=== PATIENT | female | born 1960 | race Caucasian/White ===

== ENCOUNTER → 2019-05-11 14:47 | Outpatient (CLI) | payer OTHER, SELFPAY ==
--- NOTE | ~2019-05-11 | MM_ITS ---
EXAMINATION: MM screening tan BI w jean pierre HISTORY: Screening mammogram TECHNIQUE: Craniocaudal and mediolateral oblique 3-D tomosynthesis images were obtained and synthetic 2-D images were generated. CAD analysis was submitted and interpreted. COMPARISON: Comparison to multiple prior studies sequentially, with oldest reviewed study dated 01/24. BREAST PARENCHYMAL COMPOSITION: There are scattered areas of fibroglandular density. FINDINGS: There is no evidence of suspicious mass, calcification, or architectural distortion to sugg est malignancy in either breast. There has been no suspicious interval change. IMPRESSION: 1. No mammographic evidence of malignancy. 2. Recommend routine screening mammography in one year. BI-RADS Category 1: Negative Reviewed, dictated and finalized at location A.
== END ==
PROVIDERS: PCP Internal Medicine; Visit Provider Internal Medicine
DX: Z12.31 Encounter for screening mammogram for malignant neoplasm of breast (principal)
CPT/HCPCS: 77063; 77067

== ENCOUNTER → 2020-06-22 15:34 | Outpatient (CLI) | payer OTHER, SELFPAY ==
--- NOTE | ~2020-06-22 | MM_ITS ---
EXAMINATION: MM screening tan BI w jean pierre HISTORY: Screening mammogram TECHNIQUE: Craniocaudal and mediolateral oblique 3-D tomosynthesis images were obtained and synthetic 2-D images were generated. CAD analysis was submitted and interpreted. COMPARISON: 05/11/2019, 04/06/2018, 03/27/2017 bilateral digital screening mammogram examinations BREAST PARENCHYMAL COMPOSITION: The breasts are almost entirely fatty. FINDINGS: There is no evidence of suspicious mass, calcification, or architectural distortion to sugg est malignancy in either breast. There has been no suspicious interval change. IMPRESSION: 1. No mammographic evidence of malignancy. 2. Recommend routine screening mammography in one year. BI-RADS Category 1: Negative Reviewed, dictated and finalized at location A.
== END ==
PROVIDERS: PCP Internal Medicine; Visit Provider Student in an Organized Health Care Education/Training Program
DX: Z12.31 Encounter for screening mammogram for malignant neoplasm of breast (principal)
CPT/HCPCS: 77063; 77067

== ENCOUNTER → 2021-05-17 17:58 | Outpatient (CLI) | payer OTHER, SELFPAY ==
--- NOTE | ~2021-05-17 | MR_ITS ---
EXAMINATION: MR knee RT wo con DATE: 05/17/2021 18:30 INDICATION: Right knee pain TECHNIQUE: Magnetic resonance imaging (MRI) of the right knee was performed without intravenous contr ast. Sequences included coronal PD-weighted FSE, coronal PD-weighted FS FSE, sagittal T2-weighted FS E, sagittal PD-weighted FS FSE and axial PD weighted fat saturated FSE. COMPARISON: None. FINDINGS: Medial compartment: Medial meniscus is normal. Mild partial-thickness chondral ulceration without degenerative subchondra l changes along the medial margin of the anterior weightbearing medial femoral condyle. Lateral compartment: Complex tear of the lateral meniscus extending from the anterior to the posterior horn. The body and lateral aspect of the posterior horn. 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 There is a longitudinal horizontal tear plane in the remaining tissue of the meniscal body which extends into the anterior horn. Sense of full/near fu ll-thickness chondral ulceration along the central to posterior aspect of the lateral tibial plateau and at the central to posterior weightbearing lateral femoral condyle, the latter with multiple tiny subarticular cystlike changes. Patellofemoral compartment: Partial-thickness cartilage loss at the lateral patellar facet with deep fissuring and underlying mil d edema-like signal change at the lateral side of the lateral facet. There is an additional deep marleni dral fissuring without degenerative subchondral changes along the medial margin of the medial patella r facet. Partial-thickness chondral ulceration and deep fissuring along the inferior aspect of the me dial and lateral trochlea and intervening trochlear groove with small central subchondral osteophytes at the inferior medial trochlea. Less severe partial thickness chondral fissuring at the central asp ect of the trochlear groove. Ligaments and tendons: Anterior and posterior cruciate ligaments are normal. The medial collateral ligament and fibular andrew ateral ligament complex are normal. The extensor mechanism is normal. The visualized medial and later al hamstring tendons as well as the iliotibial band are normal. Fluid: Small knee joint effusion with fluid and mild synovitis at the suprapatellar pouch and at the poplite al recess. No loose osteochondral bodies identified. Osseous/other: Bone alignment is normal. No fracture or pathologic marrow replacing process. There is additional ost eoarthritis at the proximal tibiofibular articulation with small ganglion cysts along the ligament ar ising from the proximal tip of the fibula consistent with some intraosseous extension into the floor service worker spring olateral tibia at the footplate of the anterior tibiofibular ligament. IMPRESSION: 1. Complex lateral meniscal tear with large displaced meniscal flap. 2. Tricompartmental osteoarthritis at the right knee, severe in the lateral compartment, mild with mo derate and high-grade chondromalacia in the patellofemoral compartment and minimal with small region of moderate grade chondromalacia at the medial compartment. Reviewed, dictated and finalized at location A. IMPRESSION: 1. Complex lateral meniscal tear with large displaced meniscal flap. 2. Tricompartmental osteoarthritis at the right knee, severe in the lateral com partment, mild with moderate and high-grade chondromalacia in the patellofemora l compartment and minimal with small region of moderate grade chondromalacia at the medial compartment.
== END ==
PROVIDERS: PCP Internal Medicine; Visit Provider Nurse Practitioner Family
DX: M25.561 Pain in right knee (principal); S83.271A Complex tear of lateral meniscus, current injury, right knee, initial encounter; M17.11 Unilateral primary osteoarthritis, right knee; M94.261 Chondromalacia, right knee
CPT/HCPCS: 73721

== ENCOUNTER → 2021-07-02 12:13 | Outpatient (CLI) | payer OTHER, SELFPAY ==
--- NOTE | ~2021-07-02 | MM_ITS ---
EXAMINATION: MM screening tan BI w jean pierre HISTORY: Screening TECHNIQUE: Craniocaudal and mediolateral oblique 3-D tomosynthesis images were obtained and synthetic 2-D images were generated. CAD analysis was submitted and interpreted. COMPARISON: Comparison to multiple prior studies sequentially, with oldest reviewed study dated 03/13. BREAST PARENCHYMAL COMPOSITION: There are scattered areas of fibroglandular density. FINDINGS: There is no evidence of suspicious mass, calcification, or architectural distortion to sugg est malignancy in either breast. There has been no suspicious interval change. IMPRESSION: 1. No mammographic evidence of malignancy. 2. Recommend routine screening mammography in one year. BI-RADS Category 1: Negative Reviewed, dictated and finalized at location A.
== END ==
PROVIDERS: PCP Internal Medicine; Visit Provider Student in an Organized Health Care Education/Training Program
DX: Z12.31 Encounter for screening mammogram for malignant neoplasm of breast (principal)
CPT/HCPCS: 77063; 77067

== ENCOUNTER → 2022-08-29 13:20 | Outpatient (CLI) | payer OTHER, SELFPAY ==
--- NOTE | ~2022-08-29 | MM_ITS ---
EXAMINATION: MM screening tna BI w jean pierre HISTORY: Screening mammogram, family history of breast cancer in her mother. TECHNIQUE: Craniocaudal and mediolateral oblique 3-D tomosynthesis images were obtained and synthetic 2-D images were generated. CAD analysis was submitted and interpreted. COMPARISON: 07/02/2021, 06/22/2020, 05/11/2019 BREAST PARENCHYMAL COMPOSITION: The breasts are almost entirely fatty. FINDINGS: No suspicious mass, calcification, or architectural distortion are identified in either frank ast to suggest malignancy. There has been no suspicious interval change. IMPRESSION: 1. No mammographic evidence of malignancy. 2. Recommend routine screening mammography in one year. BI-RADS Category 1: Negative Reviewed, dictated and finalized at location A.
== END ==
PROVIDERS: PCP Registered Nurse; Visit Provider Internal Medicine
DX: Z12.31 Encounter for screening mammogram for malignant neoplasm of breast (principal)
CPT/HCPCS: 77063; 77067

== ENCOUNTER 2023-10-09 13:17 | Outpatient (CLI) | payer OTHER, SELFPAY ==
--- NOTE | ~2023-10-09 | MM_ITS ---
EXAMINATION: MM screening tan BI w jean pierre HISTORY: Screening TECHNIQUE: Craniocaudal and mediolateral oblique 3-D tomosynthesis images were obtained and synthetic 2-D images were generated. CAD analysis was submitted and interpreted. COMPARISON: Comparison to multiple prior studies sequentially, with oldest reviewed study dated 02/2017. BREAST PARENCHYMAL COMPOSITION: Not Dense: The breasts are almost entirely fatty. FINDINGS: There is no evidence of suspicious mass, calcification, or architectural distortion to sugg est malignancy in either breast. There has been no suspicious interval change. IMPRESSION: 1. No mammographic evidence of malignancy. 2. Recommend routine screening mammography in one year. BI-RADS Category 1: Negative Reviewed, dictated and finalized at location B.
== END 2023-10-09 13:18 ==
LOC: MICIMG 13:18
PROVIDERS: PCP Internal Medicine; Visit Provider Obstetrics & Gynecology
DX: Z12.31 Encounter for screening mammogram for malignant neoplasm of breast (principal)
CPT/HCPCS: 77063; 77067

== ENCOUNTER 2024-08-31 13:52 | Outpatient (CLI) | payer OTHER, SELFPAY ==
--- OUTSIDE RECORDS SUMMARY | 2024-08-31 13:58 | XMS_ITS | Clinical Summary ---
Author Organization [facility] A Address [address] [place] [address] Care Team Providers Care Clinical Supervisor Name Role Phone Mikki Nicolas Julius HUC Unavailable [phone] Ita Sanchez Unavailable [phone] Patrick Valdez MD Primary Care Provider [phone] Allergies Active Allergy Reactions Criticality Noted Date Comments Diclofenac Potassium Stomach upset Low Reaction: stomach upset, Venlafaxine Stomach upset Low Medications melatonin 10 mg capsule Take by mouth nightly Active cholecalcifer ol (VITAMIN D-3) 2,000 unit tablet Take by mouth daily before breakfast Active fluticasone propionate (Flonase) 50 mcg/actuation nasal spray Administer 2 sprays into each nostril daily as needed for rhinitis 1 Inhaler 3 020 Active CYANOCOBALAMI N, VITAMIN B-12, ORAL Take by mouth every other day Active ferrous sulfate 325 mg (65 mg of elemental iron) tabletIndicat ions:Iron Deficiency Anemia Take 1 tablet (325 mg total) by mouth every other day Active calcium carbonate (TUMS) 500 mg (200 mg elemental) chewable tablet Take 1 tablet/chew tab (500 mg total) by mouth 2 (two) times a day Active polyethylene glycol (MIRALAX) 17 gram packetIndicat ions:constipa tion Take 1 packet (17 g total) by mouth daily Active amoxicillin 500 mg capsule Take 4 tablet/capsule (2,000 mg total) by mouth daily as needed Take 4 capsules 1 hour prior to dental procedures as prophylaxis 024 Active gabapentin (NEURONTIN) 300 mg capsule TAKE 1 CAPSULE(300 MG) BY MOUTH EVERY NIGHT 90 capsule [address] (CYMBALTA) 60 mg capsule TAKE 1 CAPSULE TWICE DAILY 180 capsule 1 025 Active eletriptan (RELPAX) 40 mg tablet TAKE 1 TABLET(40 MG) BY MOUTH 1 TIME NEEDED FOR MIGRAINE. MAY REPEAT 1 TIME AFTER 2 HOURS NEEDED, 12 tablet 5 025 Active acyclovir (ZOVIRAX) 400 mg tabletIndicat ions:HSV (herpes simplex virus) infection TAKE 2 TABLETS(800 MG) BY MOUTH TWICE DAILY FOR 5 DAYS 20 tablet [address] (NexIUM) 40 mg capsule TAKE 1 CAPSULE DAILY BEFOREBREAKFAST 90 capsule 3 025 Active lisinopriL (PRINIVIL,ZES TRIL) 40 mg tablet Take 1 tablet (40 mg total) by mouth daily 90 tablet 3 025 Active galcanezumab- gnlm (Emgality Pen) 120 mg/mL pen injector Inject 120 mg under the skin every 30 (thirty) days 120 mL 6 025 Active diphenhydrAMI NE 25 mg capsule Take 1 tablet/capsule (25 mg total) by mouth every 6 (six) hours as needed for other (Headache) 20 capsule 025 Active metoclopramid e (REGLAN) 10 mg tablet Take 1 tablet (10 mg total) by mouth every 6 (six) hours as needed (nausea) 15 tablet 025 Active butalbital-ac etaminophen-c affeine (ESGIC) 50-325-40 mg per tablet Take 1 tablet by mouth every 6 (six) hours as needed for headaches (1 tablet for mild to moderate pain or 2 tablets for severe pain.) Do not exceed 6 tablets/day. 20 tablet 025 Active ziprasidone (GEODON) 20 mg capsule Take 1 capsule (20 mg total) by mouth daily 5 capsule 025 Active OLANZapine (ZyPREXA) 5 mg tablet Take 1 tablet by mouth nightly for 5 nights 5 tablet 025 2024 Discontinued Hospital, Clinic, or Other Facility Administered Medication Ordered Dose Route Frequency Start Date End Date Status onabotulinumtoxin A (BOTOX) 200 unit injection 200 UnitsIndications:Intractabl e chronic migraine without aura and without status migrainosus 200 Units IM Once 10/19/2024 10/20/2024 Active Active Problems Problem Noted Date Diagnosed Date Essential tremor 02/03/2024 Well woman exam 01/27/2023 Overview (03/15/2024): Lab: Pap:all normal Labs with pcp Tan:2023 Colonoscopy:2017, 2022 to repeat 2027. BMD:2021 forearm- -4, spine = -0.4 follows at [facility]. Assessment & Plan (03/15/2024 1:38 PM [employer]AMING AND HANGING): Pap done. RTO 12m. I will send the results to the portal. If she has not heard in a week, to call the office. Assessment & Plan (09/08/2023 4:07 PM CDT): Due in January. Assessment & Plan (01/27/2023 1:43 PM [employer]AMING AND HANGING): Pap done. RTO 12m. I will send the results to the portal. If she has not heard in a week, to call the office. Family history of cancer 01/27/2023 Overview (08/02/2023): Multiple see list. 02/26/23- my risk is negative. My risk score = 32.1 and TC model=21.6% 04/12/23- she did not see 08/02/23- she was seen at [facility], but did not enroll in their program. Increased surveillance was recommended. Assessment & Plan (03/15/2024 1:52 PM [employer]ING AND HANGING): Normal breast exam Will repeat in 6m. Assessment & Plan (09/08/2023 4:06 PM CDT): She is scheduled for September for tan Note reviewed from [facility] They recommend - yearly tan and q 6m breast exam. Breast are good. Assessment & Plan (03/10/2023 4:31 PM FRAMING AND HANGING): Will arrange for her to go to [facility] Will plan for usg to screen the ovaries q 1-2 years She had implant polisher She had colonscopy 02/15. Will plan to repeat 2027 Assessment & Plan (01/27/2023 1:51 PM FRAMING AND HANGING): She qualifies for genetic testing. Will arrange. RTO 6 weeks for the results. The limitations and implications of the test reviewed. She voices understanding and would like to proceed. Family history of colon cancer 12/16/2022 Encounter for screening colonoscopy 12/16/2022 Arthritis of right acromioclavicular joint 06/21 Impingement syndrome of right shoulder Preop examination 06/20/2022 Assessment & Plan (06/24/2022 11:22 AM CDT): She understands that no procedure is risk-free but accepts those as discussed during OV and wishes to proceed. She was instructed to contact us if any new symptoms or problems arise between now and surgery date. According to the RCRI, the patient's number of risk factors stratifies patient to class I, which carries a 3.9% risk of major cardiovascular complications Recent labs in March reviewed unremarkable She is medically optimized for surgery Impacted cerumen of left ear 04/18/2022 Assessment & Plan (07/25/2022 12:54 PM CDT): Patient's ears were lavaged gently with warm water and wax was easily removed from both reducing normal appearing tympanic membranes and improvement of hearing bilaterally. Patient had no questions or comments or complaints. Assessment & Plan (04/18/2022 2:34 PM FRAMING AND HANGING): Recommended Debrox for 4- 5 days and calling back for ear wash at that point. S/P total knee arthroplasty, right 11/11/2021 Hemorrhoids 09/07/2021 Overview (09/07/2021): Added automatically from request for surgery [id number] Osteoarthritis of right knee 03/24/2020 Assessment & Plan (03/24/2020 5:42 PM FRAMING AND HANGING): Repeat Orthopedic referral when ready. Low vitamin B12 level 07/23/2019 Assessment & Plan (05/09/2023 12:34 PM CDT): Continue B12 supplementation check levels yearly. Assessment & Plan (05/08/2023 6:10 PM CDT): B12 results in therapeutic range patient takes B12 every other day by mouth Assessment & Plan (04/18/2022 2:32 PM FRAMING AND HANGING): Continue supplementation check level in 1 year. Assessment & Plan (05/25/2021 12:06 AM CDT): Continue B12 supplementation. Assessment & Plan (03/24/2020 5:42 PM FRAMING AND HANGING): Continue supplementation and check level in 1 year. Assessment & Plan (07/23/2019 2:53 PM CDT): Continue supplementation check level before next visit. Iron deficiency 07/23/2019 Overview (03/24/2020): EGD 07/2019 with gastritis, healed on 10/2019 egd; colonoscopy unremarkable 2017. Iron levels, cbc normalized 02/2020. Assessment & Plan (04/18/2022 2:32 PM FRAMING AND HANGING): Continue supplementation check level in 1 year. Assessment & Plan (05/25/2021 12:06 AM CDT): Continue iron supplementation. Assessment & Plan (03/24/2020 5:44 PM FRAMING AND HANGING): Resolved with supplementation. Assessment & Plan (07/23/2019 2:54 PM CDT): Continue supplementation. EGD before next visit. Colonoscopy last done 2017. Gastroesophageal reflux disease with esophagitis 03/16/2019 Overview (03/16/2019): Added automatically from request for surgery [id number] Assessment & Plan (05/08/2023 6:11 PM CDT): Symptoms are suppress using Nexium 40 mg daily. Hypertension, essential 03/09/2019 Assessment & Plan (11/13/2023 2:21 PM CDT): Hypertension at goal 106/64 patient is maintained on lisinopril 40 mg daily. Symptoms referable to hypertension continue present therapy Assessment & Plan (05/09/2023 12:33 PM CDT): Blood pressure well controlled on lisinopril Assessment & Plan (05/08/2023 6:09 PM CDT): Blood pressure 1 patient is tolerating medications no change in therapy. Assessment & Plan (04/18/2022 2:33 PM FR[employer]ING [employer] HANGING): Blood pressure well controlled on lisinopril. Assessment & Plan (05/25/2021 12:06 AM CDT): Well controlled on the current regimen. Avoidance of salt, proper body weight, and routine exercise recommended. Assessment & Plan (03/24/2020 5:43 PM FRAMING AND HANGING): Well controlled on the current regimen. Avoidance of salt, proper body weight, and routine exercise recommended. Assessment & Plan (07/23/2019 2:52 PM CDT): Well controlled on the current regimen. Avoidance of salt, proper body weight, and routine exercise recommended. Assessment & Plan (03/09/2019 3:38 PM FRAMING AND HANGING): Start lisinopril 20 mg daily and check metabolic panel in 1 week. See her back in 2 months for repeat evaluation. Call back in 1 week for blood pressure update. Call back for any side effects that may develop. Anemia 03/09/2019 Overview (03/24/2020): Combination of b12/iron def. EGD with healed gastritis 10/2019. Hgb, B12, iron normal 02/2020. Assessment & Plan (05/25/2021 12:06 AM CDT): Hemoglobin normalized. Assessment & Plan (03/24/2020 5:44 PM FRAMING AND HANGING): Continue B12 and iron supplementation. Hemoglobin improved and now normal. Check levels again before next visit. Assessment & Plan (07/23/2019 2:52 PM CDT): Combination of iron and B12 deficiency. Continue supplementation. Check B12 and iron levels before next visit. EGD pending for iron deficiency. Assessment & Plan (03/09/2019 3:39 PM FRAMING AND HANGING): Laboratory workup before next visit. Spondylolisthesis of lumbar region 12/30/2018 Overview (12/30/2018): Added automatically from request for surgery [id number] Spondylolisthesis of lumbosacral region 12/10/19 19 Chronic migraine without aur a without status migrainosus, not intractable 10/14/2017 Assessment & Plan (03/09/2019 3:40 PM FRAMING AND HANGING): Continue current medication regimen and follow up with her neurologist as they direct. Assessment & Plan (03/08/2018 2:09 PM FRAMING AND HANGING): Continue her multiple medications and follow up with her neurologist as they direct. Healthcare maintenance 03/05/2017 Assessment & Plan (05/09/2023 12:33 PM CDT): Flu shot each November. Tetanus booster every 10 years. COVID booster recommended. Shingrix completed. Colonoscopy due January 2028. Mammogram yearly. Follow-up the sewer digger for breast exam and pelvic exam as they direct. Will see her back in 1 year for physical fasting lab sooner if needed. Assessment & Plan (04/18/2022 2:34 PM FRAMING AND HANGING): Flu shot each November. Tetanus booster today. COVID booster recommended. Shingrix recommended. Colonoscopy due April 2022. Mammogram yearly. Follow-up the sewer digger for breast exam and pelvic exam as they direct. Will see her back in 1 year for physical fasting lab sooner if needed. Assessment & Plan (05/25/2021 12:07 AM CDT): Flu shot each November. Tetanus booster every 10 years. COVID-19 vaccine recommended. Shingrix recommended. Colonoscopy due April 2022. Mammogram yearly. Follow-up the sewer digger for breast exam and pelvic exam as they direct. Will see her back in 1 year for physical fasting lab sooner if needed. Assessment & Plan (03/24/2020 5:44 PM FRAMING AND HANGING): Flu shot each November. Tetanus booster every 10 years. COVID -19 vaccine when available. Shingrix recommended. Colonoscopy April 2022. Mammogram April 2020. Follow-up with her sewer digger for breast exam and pelvic exam as they direct. Will see her back in 1 year for physical and fasting lab sooner if needed. Assessment & Plan (03/09/2019 3:39 PM FR[employer]ING AND HANGING): Flu shot each November. Tetanus booster every 10 years. Shingrix recommended. Colonoscopy due April 2022. Mammogram yearly. Will see her back in 2 months for a blood pressure check sooner if needed. Assessment & Plan (03/08/2018 2:09 PM FRAMING AND HANGING): Flu shot each November. Tetanus booster every 10 years. Shingrix recommended colonoscopy due April 2022. Yearly mammogram and follow up with her sewer digger for breast exam and pelvic exam as they direct. We will see her back in 1 year for physical and fasting lab sooner if needed. Assessment & Plan (03/05/2017 4:02 PM FRAMING AND HANGING): Flu shot each November. Tetanus booster every 10 years. Colonoscopy due later this month. Mammogram yearly. Follow-up with the sewer digger for breast exam and pelvic exam as they direct. We will see her back in 1 year sooner if needed. Chronic headache 03/04/2017 Overview (03/04/2017): Tension/migraine, followed by neurology at [facility]. Improved with botox. Failed nortriptyline. Assessment & Plan (11/13/2023 2:29 PM CDT): Headaches stable patient is under care of Neurology at [facility] Dr. Lundberg. Assessment & Plan (05/08/2023 6:07 PM CDT): Patient advised me therapy for headaches is working very effectively she is under care of neurologist at [facility] Dr. Summer Young. Follow-up visit about every 12 weeks to manage her ongoing headache concerns and problems Assessment & Plan (03/24/2020 5:43 PM [employer]ING [employer] HANGING): Follow-up with her neurologist as they direct. Assessment & Plan (03/05/2017 4:00 PM FRAMING AND HANGING): Follow-up with her neurologist as they direct. Chronic low back pain 03/04/2017 Assessment & Plan (03/09/2019 3:40 PM FRAMING AND HANGING): Follow-up with her neurosurgeon as they direct. Herpes labialis 03/04/2017 Osteoporosis 12/23/2016 Assessment & Plan (04/27/2024 6:54 PM FRAMING AND HANGING): Continue calcium, vitamin-D, weight-bearing exercise and follow up with her bone density specialist as they direct. Assessment & Plan (05/09/2023 12:33 PM CDT): Continue calcium, vitamin-D, weight-bearing exercise and follow up with her bone density specialist as they direct. Assessment & Plan (05/08/2023 6:08 PM CDT): Patient under care of Dr. Radha [facility]. She is maintained on vitamin-D calcium and Prolia Assessment & Plan (04/18/2022 2:32 PM FRAMING AND HANGING): Calcium, vitamin-D, weight-bearing exercise, Reclast/bone density scan per her bone density specialist. Assessment & Plan (05/25/2021 12:06 AM CDT): Calcium, vitamin-D, weight-bearing exercise and follow-up with her bone density specialist as they direct. Assessment & Plan (03/24/2020 5:42 PM FRAMING AND HANGING): Continue calcium, vitamin-D, weight-bearing exercise and follow-up with bone density specialist as they direct. Assessment & Plan (03/09/2019 3:38 PM FRAMING AND HANGING): Continue calcium, vitamin-D, weight-bearing exercise and follow up with her bone density specialist for Reclast and bone density scans as they direct. Assessment & Plan (03/08/2018 2:08 PM FRAMING AND HANGING): Calcium, vitamin-D, weight-bearing exercise and follow up with her specialist for her 2nd Reclast dose and repeat bone density scan as they direct Assessment & Plan (03/05/2017 4:00 PM FRAMING AND HANGING): Continue calcium, vitamin-D, weight-bearing exercise, Reclast and follow up with her specialist as they direct. Disturbance in sleep behavior 09/04/2015 Impaired fasting glucose 07/10/2013 Overview (05/29/2016): IMPAIRED FASTING GLUCOSE Assessment & Plan (04/27/2024 6:53 PM FRAMING AND HANGING): Patient should reduce sugar and carbs, increase exercise, maintain proper body weight, and will check an A1c once or twice yearly. Assessment & Plan (05/09/2023 12:32 PM CDT): Patient should reduce sugar and carbs, increase exercise, maintain proper body weight, and will check an A1c once or twice yearly. Assessment & Plan (04/18/2022 2:32 PM FRAMING AND HANGING): Patient should reduce sugar and carbs, increase exercise, maintain proper body weight, and will check an A1c once or twice yearly. Assessment & Plan (05/25/2021 12:05 AM CDT): Patient should reduce sugar and carbs, increase exercise, maintain proper body weight, and will check an A1c once or twice yearly. Assessment & Plan (03/24/2020 5:43 PM FRAMING AND HANGING): Patient should reduce sugar and carbs, increase exercise, maintain proper body weight, and will check an A1c once or twice yearly. Assessment & Plan (03/09/2019 3:38 PM FRAMING AND HANGING): Patient should reduce sugar and carbs, increase exercise, maintain proper body weight, and will check an A1c once or twice yearly. Assessment & Plan (03/08/2018 2:08 PM FRAMING AND HANGING): Patient should reduce sugar and carbs, increase exercise, maintain proper body weight, and will check an A1c once or twice yearly. Assessment & Plan (03/05/2017 3:59 PM FRAMING AND HANGING): Patient should reduce sugar and carbs, increase exercise, maintain proper body weight, and will check an A1c once or twice yearly. Hyperlipidemia 07/10/2013 Overview (05/29/2016): HYPERLIPIDEMIA NEC/NOS Assessment & Plan (04/27/2024 6:53 PM FRAMING AND HANGING): Low risk for ASCVD and therefore recommend diet exercise and will check again 1 year. Assessment & Plan (05/09/2023 12:32 PM CDT): Low risk for ASCVD and therefore recommend diet exercise and will check again 1 year. Assessment & Plan (05/08/2023 6:10 PM CDT): Profile were reviewed patient's ASCVD score is 3.7 which is very low Assessment & Plan (04/18/2022 2:33 PM FRAMING AND HANGING): Low risk for ASCVD and therefore recommend diet exercise and will check again 1 year. Assessment & Plan (05/25/2021 12:05 AM CDT): Remains low risk for ASCVD and therefore recommend diet exercise. Assessment & Plan (03/24/2020 5:43 PM FRAMING AND HANGING): Low risk for ASCVD and therefore recommend diet and exercise. Assessment & Plan (03/09/2019 3:39 PM FRAMING AND HANGING): Low risk for ASCVD and therefore recommend diet exercise. Assessment & Plan (03/08/2018 2:08 PM FRAMING AND HANGING): Low risk for ASCVD and therefore recommend diet exercise. Assessment & Plan (03/05/2017 4:00 PM FRAMING AND HANGING): Diet and exercise recommended. Arthralgia of hip 06/04/2013 Lumbago 06/04/2013 Chronic rhinitis 12/26/2011 Overview (05/31/2016): Rhinitis, chronic Metatarsalgia 04/24/2011 Arthralgia of shoulder 03/14/2011 Pain of foot 03/15/2010 Resolved Problems Problem Noted Date Diagnosed Date Resolved Date Biceps tendinitis on right 06/21/2022 0 11/13/2023 Assessment & Plan (06/24/2022 11:22 AM CDT): Shoulder Arthroscopy with biceps tenodesis on 07/04/22 Abdominal pain 03/06/2021 11/13/2023 Assessment & Plan (03/06/2021 2:18 PM FRAMING AND HANGING): Hi fiber diet and miralax Gastritis 10/14/2019 11/13/2023 Overview (10/14/2019): Added automatically from request for surgery [id number] Intractable chronic migraine without aura and without status migrainosus 09/30/2017 09/08/2018 Osteopenia 10/23/2015 03/06/2018 Ankle pain 03/08/2015 05/08/2023 Anxiety 12/08/2013 05/08/2023 Gastroesophageal reflux disease 07/10/2013 07/18/2021 Overview (05/31/2016): ESOPHAGEAL REFLUX Assessment & Plan (07/23/2019 2:53 PM CDT): Continue generic Nexium. EGD pending. Assessment & Plan (03/09/2019 3:39 PM FRAMING AND HANGING): Changed to generic Nexium 40 mg daily. Discussed lifestyle modifications. Order EGD. Assessment & Plan (03/08/2018 2:08 PM FRAMING AND HANGING): Continue current PPI and the patient is aware of the long-term risks posed by chronic PPI usage. Magnesium level will be checked periodically. Calcium supplementation recommended. Assessment & Plan (03/05/2017 4:04 PM FRAMING AND HANGING): If no improvement on her omeprazole in 2 weeks, increased to 40 mg daily. Lifestyle modification discussed. Long-term risks of PPI discussed. Check magnesium level occasionally. Encounters Date Type Department Care Team Description 08/11/2024 6:03 PM CDT - 08/11/2024 7:42 PM CDT Emergency [facility] Emergency Department [address] [place] [address] Thai Anderson MD Migraine without status migrainosus, not intractable, unspecified migraine type (Primary Dx) Discharge Disposition: Discharge to home or self care 07/21/2024 1:30 PM CDT Procedure visit [facility] General Neurology [address] 6th [address] [place] [address] Summer Young MD PhD Intractable chronic migraine without aura and without status migrainosus (Primary Dx) 07/21/2024 Orders Only [facility] Neurology [address] [place] [address] Thomas Vazquez RN Intractable chronic migraine without aura and without status migrainosus (Primary Dx) 07/20/2024 Telephone [facility] Neurology [address] [place] [address] Summer Young MD PhD Emgality PA 07/16/2024 Orders Only [facility] General Neurology [address] [place] [address] Ashley Christina Intractable chronic migraine without aura and without status migrainosus (Primary Dx) 06/08/2024 Telephone [employer] [address] [place] [address] Radha Cox MD from Last 3 Months Immunizations Immunization Administration Dates Next Due Influenza, Quadrivalent, Spl it, Intramuscular 11/08/2015 Influenza, Quadrivalent, Spl it, Preservative Free, Intramuscular 12/10/2022,12/14/2021,12/26/2020,12/20,12/23/2018,12/25/2017,12/01/2014 Influenza, Split 11/27/2010 Influenza, Trivalent, IM (MDV) 12/08/2013,2012,12/19/2011 Influenza, Trivalent, Preser vative Free, Intramuscular 11/13/2023 Influenza, Unspecified 12/02/2016 [employer] ([employer]) SARS-CoV-2 Vaccination 05/02/2020 Pfizer SARS-CoV-2 Monovalent Vaccination (12+ Yrs) PURPLE 01/09/2021 Td, adsorbed 04/18/2022 Tdap 12/18/2010 ZOSTER Recombinant 06/26/2021,04/17/2021 Surgical History Surgery Date Site/Laterality Comments OTHER SURGICAL HISTORY 02 - Ortho: Dr Romaine Estrada OTHER SURGICAL HISTORY Aseptic Necrosis Left metatarsal head: Boot imobilazation, surgery 11 OTHER SURGICAL HISTORY Post menopausal symptoms: effexor weaned off due to nortryptiline OTHER SURGICAL HISTORY tension headache/ migraines: Multiple Neurologists (Dr Silvia Melton most recently) IR INJECTION ARTHROGRAM SI JOINT LEFT INCLUDES IMAGING GUIDANCE 06/15/2018 Left FACET BLOCK LUMBAR SACRAL 1 LEVEL LEFT 08/28/2018 Left IR INJECTION ARTHROGRAM SI JOINT LEFT INCLUDES IMAGING GUIDANCE 09/29/2018 Left FL UPPER GI AIR CONTRAST W KUB 10/23/2018 Left ENDOMETRIAL ABLATION WISDOM TOOTH EXTRACTION TONSILLECTOMY/ADENOIDECTOM Y LUMBAR FUSION L5-S1 03/23/19 COLONOSCOPY 04/25/2007 - 05/25/2007 KNEE ARTHROSCOPY W/ MENISCAL REPAIR 05/25/2020 - 06/23/2020 Dr Borden FOOT SURGERY 02/24/2010 - 02/23/2011 Left BACK SURGERY lumbar area with fussion KNEE ARTHROSCOPY JOINT REPLACEMENT Right r knee HEMORRHOID SURGERY TOTAL KNEE ARTHROPLASTY 07/24/2021 Right COLONOSCOPY 04/24/2017 - 05/24/2017 SHOULDER SURGERY 07/04/[address] Lebron Medical History Medical History Date Comments 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 Hx Other Medical 02 - Ortho Hx Other Medical Aseptic Necrosi s Left metatarsal head Hx Other Medical Post menopausal symptoms Herpes zoster Herpes zoster Hx Other Medical foot surgery Hx Other Medical blooding after procedure Hx Other Medical 03: Neurology - Dr Litzy Vega Hx Other Medical tension headach e/ migraines Hx Other Medical 04: [facility] Hx Other Medical Chronic lumbar back pain, ortho spine Dr Cristóbal smyth Hx Other Medical [facility] hemorrhoids Dr Hassan Hx Other Medical Migraine headac hes - botox injections GERD (gastroesophageal reflux disease) H/O foot surgery PONV (postoperative nausea a nd vomiting) Hypertension, essential 03/09/2019 Migraines 1988 Osteoarthritis Headache post anesthesia BRCA1 negative BRCA2 negative Family History Medical History Relation Name Comments Melanoma Brother 1 Radhames Melanoma; Breast cancer Cousin Cherelle Gibsonelva aguila rs, Kiley and Chelle with breast Alzheimer's disease Father Dinesh Mares Bladder Cancer Father Dinesh Mares Cancer -bladd er; /Cancer, bladder; Coronary artery disease Father Dinesh Mares Dusyt nary artery disease; Heart attack Father Dinesh Mares Memory loss Father Dinesh Mares Breast cancer Father's Sister 1 x 2 Cancer -b reast; both in the 40s. Ирина and Raegan Breast cancer Father's Sister 2 ИРИНА Aunt Noris sarabia had the BRCA test done in her early 30s and it came back negative. By age 38 she had breast cancer and had a mastectomy Breast cancer Mother Micaela Lozadaew COPD Mother Micaela Lozadaew COPD; Hypertension Mother Micaela Lozadaew Hypertension; Lung cancer Mother Micaela Lozadaew Cancer -lung; /Cancer, lung; Melanoma Mother Micaela Lozadaew Cancer -melano ma; Multiple myeloma Mother Micaela Lozadaew Osteoporosis Mother Micaela Lozadaew Postmenopausal breast cancer Mother Micaela Lozadaew Cancer -breast; /Cancer, breast; Breast cancer Mother's Brother 1 Cancer - breast; Colon cancer Mother's Brother 1 Colon cancer Mother's Brother 2 Ovarian cancer Mother's Sister Cancer -ov sean; Arthritis Other 1 Heart disease Other 1 Stroke Other 1 Breast cancer Paternal Grandmother Cancer -breast; Hip fracture Neg Hx no colon cancer cmt 01/27/23 Relation Name Status Comments Brother 1 Radhames Brother 2 Arcadio Cousin Cherelle Alive Father Dinesh Mares Alive Father's Sister 1 x 2 Father's Sister 2 ИРИНА Father's Sister 3 Alive Mother Micaela Mares Mother's Brother 1 Mother's Brother 2 Mother's Sister Other 1 Other 2 Alive Paternal Grandmother Son 1 Alive Son 2 Alive Social History Tobacco Use Types Packs/Day Years Used Date Smoking Tobacco: Never Passive Smoke Exposure: Past Smokeless Tobacco: Never Tobacco Cessation:Counseling Given: Not Answered Alcohol Use Standard Drinks/Week Comments Not Currently 0 (1 standard drink = 0.6 oz pur e alcohol) rare Humiliation, Afraid, Rape, and Kick questionnair e Answer Date Recorded Within the last year, have y ou been afraid of your partner or ex-partner? No 01/27/2023 Within the last year, have y ou been humiliated or emotionally abused in other ways by your partner or ex-partner? No Within the last year, have y ou been kicked, hit, slapped, or otherwise physically hurt by your partner or ex-partner? No 01/27/2023 Within the last year, have y ou been raped or forced to have any kind of sexual activity by your partner or ex-partner? No 01/27/2023 AUDIT-C Answer Date Recorded Q1: How often do you have a drink containing alcohol? Never 04/24/2023 Q2: How many drinks containi ng alcohol do you have on a typical day when you are drinking? Patient does not drink Q3: How often do you have si x or more drinks on one occasion? Never 04/24/2023 PHQ-2 Answer Date Recorded PHQ-2 Total Score (If total score is 3 or more points, staff should administer the PHQ-9) 0 03/15/2024 Personal Safety Answer Date Recorded Have you ever been in or are you currently in a harmful physical or emotional relationship or is someone making you feel afraid or unsafe? Denies 08/11/2024 Comments No Sex and Gender Information Value Date Recorded Sex Assigned at Not on file Legal Sex Female 11:55 PM [employer] [facility] Gender Identity Female 04/19/2022 11:37 AM [facility] [employer] [facility] Sexual Orientation Straight 09/06/2018 9: 27 PM CDT Obstetrics History Para Term AB IAB SAB Ectopic Multiple Livin g Live Births 3 2 2 1 1 2 2 Date Outcome GA Total Labor Labor/2nd/3rd Weight Sex Type Anes PTL Namrata A1 A5 Name Clin 0 SAB 1990 Term M Vag-S pont Living 1991 Term M Vag-S pont Living Last Filed Vital Signs Vital Sign Reading Time Taken Comments Blood Pressure 157/83 08/11/2024 6:45 PM CDT Pulse 57 08/11/2024 6:45 PM CDT Temperature 36.3 C (97.3 F) 08/11/2024 12:49 PM CDT Respiratory Rate 16 08/11/2024 6:45 PM CDT Oxygen Saturation 97% 08/11/2024 6:45 PM CDT Inhaled Oxygen Concentration - - Weight 63.5 kg (140 lb) 08/11/2024 12:49 PM CDT Height 157.5 cm (5' 2) 08/11/2024 12:49 PM CDT Body Mass Index 25.61 08/11/2024 12:49 PM CDT Plan of Treatment Health Maintenance Due Date Last Done Comments Breast Cancer Screening-Mammogram 10/08/2024 10/09/2023, 08/29/2022, 07/02/2021, Additional history exists Influenza Vaccine (#1) 2024 , 12/10/2022, 12/14/2021, Additional history exists Cervical Cancer Screening 03/15/2025 03/15/2024, 05/2022 Depression Screening 03/15/2025 03/15/2024, 04/24/2023, 01/27/2023, Additional history exists Covid-19 Vaccine ( season) 2025 01/09/2021, 05/02/2020 Postponed from 10/26/2023 (Patient declined, but will receive in the future) Regular Well Visit/Exam 18-64 04/27/2025 04/27/2024, 03/15/2024, 04/24/2023, Additional history exists Osteoporosis Screening-Bone Density Scan 04/20/2026 04/20/2024, 04/14/2023, 01/28/2022, Additional history exists Colon Cancer Screening-Colonoscopy 02/14/2028 02/13/2023, 04/29/2017, 03/16/2007 DTaP/Tdap/Td Vaccine (3 - Td or Tdap) 04/18/2032 04/18/2022, 12/18/2010 Hepatitis C Screening Completed 02/19/2017, 017 Zoster Vaccine Completed 06/26/2021, 04/17/2021 Colon Cancer Screening-CT Colonography Discontinued 02/13/2023, 04/29/2017, 03/16/2007 Colon Cancer Screening-DNA Stool Discontinued 02/13/2023, 04/29/2017, 03/16/2007 Colon Cancer Screening-FIT Discontinued 02/13, 04/29/2017, 03/16/2007 Colon Cancer Screening-Sigmoidoscopy Discontinued 02/13/2023, 04/29/2017, 03/16/2007 Hepatitis B Screening Completed 11/13/2023 Pneumococcal vaccine <65 Aged Out No longer eligible based on patient's age to complete this topic Medical Devices Implanted Type Area Firer Powerhouse Device Identifier Shelf Expiration Date Model / Serial / Lot Medtronic Inc [id number] Screw 40mm 6.5mm Bone Cd Horizon Solera Voyager Spine Multiaxial Nonsterile 5.5mm Naveed - [id number] Implanted:Qty: 2 on 03/25/2019 by Jose Garibay MD at [facility] Screw N/A: Spine Lumbar Medtronic Inc [id number] / / Medtronic Inc [id number] Screw 45mm 6.5mm Bone Cd Horizon Solera Voyager Spine Multiaxial Nonsterile 5.5mm Naveed - [id number] Implanted:Qty: 2 on 03/25/2019 by Jose Garibay MD at [facility] Screw N/A: Spine Lumbar Medtronic Inc [id number] / / Medtronic Inc [id number] Screw Set Cd Horizon Soleral Voyager Od5.5/6mm Nonsterile Latex Free - [id number] Implanted:Qty: 4 on 03/25/2019 by Jose Garibay MD at [facility] Screw N/A: Spine Lumbar Medtronic Inc [id number] / / Screws Left: Foot Tissue Bone Void Filler Acupac Plus 10cc - [id number] - [id number] Implanted:Qty: 1 on 03/23/2019 by Jose Garibay MD at [facility] Acuity Surgical Inc 10/21/2023 [id number] / [id number] / NuSquidbid Spine Tech [id number] Cage Spinal Base Titanium 15 D L42 Mm X W30 Mm X H10 Mm Nonsterile Latex Free - [id number] - [id number] Implanted:Qty: 1 on 03/23/2019 by Jose Garibay MD at [facility] Nuvasive Inc [id number] / [id number] / NuSquidbid Spine Tech [id number] Base Od5 Mm L20 Mm Variable Angle [place] Spinal Titanium Nonsterile - [id number] - [id number] Implanted:Qty: 1 on 03/23/2019 by Jose Garibay MD at [facility] Nuvasive Inc [id number] / [id number] / Medtronic Inc [id number] Cd Horizon Solera 5.5mm 35mm Cap Naveed Spinal Ccm Plus Nonsterile - [id number] Implanted:Qty: 2 on 03/25/2019 by Jose Garibay MD at [facility] N/A: Spine Lumbar Medtronic Inc [id number] / / Depuy Orthopaedics Inc Attune 5mm Cruciate Retaining Fix Bearing Knee 4 Insert Tibial [id number] - [id number] Implanted:Qty: 1 on 07/24/2021 by Nato Lebron MD at [facility] Right: Knee Depuy Orthopaedics Inc 12/24/2024 [id number] / / [id number] Depuy Orthopaedics Inc Attune Cruciate Retain Cementless Knee Right 4 Component Femoral [id number] - [id number] Implanted:Qty: 1 on 07/24/2021 by Nato Lebron MD at [facility] Right: Knee Depuy Orthopaedics Inc 06/23/2030 [id number] / / [id number] Attune Knee System Tibial Base Affixium Fixed Bearing Implanted:Qty: 1 on 07/24/2021 by Nato Lebron MD at [facility] Right: Knee Attune Medical [id number] 04/24/2031 [id number] / N/A / [id number] Description:REF [id number] [facility] ITEM# [id number] HAS NO CHARGE CODE ASSIGNED, REQ ENTERED INTO [facility] CO[facility] EA. 1272.00 DEVICE IDENT-C1776 Charge code assigned 07/25/21 128-755 Arthrex Inc Suturebridge [place] Drill Guide Punch Tap Set Implant Achilles [id number] - [id number] Implanted:Qty: 1 on 07/04/2022 by Nato Lebron MD at [facility] Right: Shoulder Arthrex Inc 12/24/2025 [id number] / / [id number] Arthrex Inc System Biceps [place] Slotted Drill Guide 1.9mm Drill Fibertak Ar-3670 - [id number] Implanted:Qty: 1 on 07/04/2022 by Nato Lebron MD at [facility] Right: Shoulder Arthrex Inc 05/25/2027 AR-3670 / / [id number] Description:Sub Pec Procedures Procedure Name Priority Date/Time Associated Diagnosis Comments CT HEAD WO CONTRAST ED 08/11/2024 1:58 PM CDT DEXA TBS AXIAL SKELETON BONE DENSITY 1 OR MORE SITES Schedule Routine, Read Routine (OP Routine) 04/20/2024 2:42 PM [facility] [employer] [facility] Age-related osteoporosis without current pathological fracture PAP AND HPV, REFLEX TO HPV GENOTYPES Routine 03/15/2024 2:29 PM [facility] [employer] [facility] Well woman exam SCREENING MAMMOGRAM BILATERAL W RAULITO Schedule Routine, Read Routine (OP Routine) 10/09/2023 2:05 PM CDT COLONOSCOPY 02/13/2023 9:59 AM [facility] [employer] [facility]ANGING HEPATITIS C AB REFLEX RNA QUANT PCR Routine 02/19/2017 11:27 AM [employer] from Last 3 Months or Most Recently Relevant to Health Maintenance Results * CT Head WO Contrast (08/11/2024 1:58 PM CDT) Anatomical Region Laterality Modality Head and Neck N/A Computed Tomogra phy 08/11/2024 2:16 PM CDT Impressions 08/11/2024 2:16 PM CDT No acute intracranial abnormality. Electronically signed by: Royal Bills M.D. Narrative 08/11/2024 2:16 PM CDT EXAMINATION: CT head without contrast HISTORY: 64-year-old woman with headaches. TECHNIQUE: Noncontrast CT of the brain was performed with images acquired from skull base to vertex. COMPARISON: None available. FINDINGS: There is no acute intracranial hemorrhage. Ventricles are of normal size and morphology. No mass effect or midline shift is present. The mason-white matter differentiation is normal. The visualized portions of the orbits are without acute abnormality. The visualized portions of the mastoids are normal. The visualized portions of the paranasal sinuses are normal. No fractures are identified. Procedure Note Royal Bills MD - 08/11/2024 EXAMINATION: CT head without contrast HISTORY: 64-year-old woman with headaches. TECHNIQUE: Noncontrast CT of the brain was performed with images acquired from skull base to vertex. COMPARISON: None available. FINDINGS: There is no acute intracranial hemorrhage. Ventricles are of normal size and morphology. No mass effect or midline shift is present. The mason-white matter differentiation is normal. The visualized portions of the orbits are without acute abnormality. The visualized portions of the mastoids are normal. The visualized portions of the paranasal sinuses are normal. No fractures are identified. IMPRESSION: No acute intracranial abnormality. Electronically signed by: Royal Bills M.D. us Felicity Truong NP IMG CT PROCEDURES Fi nal Result * Dexa TBS Axial Skeleton Bone Density 1 or more sites (04/20/2024 2:42 PM [employer]) Anatomical Region Laterality Modality Wrist, Body N/A Radiographic Liz ging Narrative 04/21/2024 1:08 PM [employer]ANGING Patient Name: Laura Lyons Date of : 1960 Date of scan: 04/20/2024 Bone mineral density was performed on a [employer] Discovery Densitometer. Based on machine cross-calibration and precision studies the least significant changes of this densitometer is 0.024 g/cm2 at the spine, 0.020 g/cm2 at the total proximal femur, and 0.014g/cm2 at the forearm. HISTORY: This is a 63 y.o. postmenopausal female with a history of osteoporosis and vitamin D deficiency. She reports that she has never smoked. She has been exposed to tobacco smoke. She has never used smokeless tobacco. Currently on treatment with calcium, vitamin D, and zoledronic acid (Reclast) and current complaint of back pain. INDICATIONS: Menopause status, treatment monitoring, vitamin D deficiency, and history of osteoporosis. FINDINGS: BONE MINERAL DENSITY OF THE LUMBAR SPINE Bone Mineral Density (BMD) of the lumbar spine was measured from L1-L3 and the average density was calculated to be 1.208 gm/cm2. This corresponds to a T-score (standard deviations from the mean of young adults) of 1.7. When compared to the previous study of 04/14/2023 there has been a 0.117 gm/cm (10.8%) increase in bone density that is considered significant. BONE MINERAL DENSITY OF THE PROXIMAL FEMUR Bone Mineral Density (BMD) of the left hip total was found to be 0.726 gm/cm2. This corresponds to a T-score standard deviations from the mean of young adults of -1.8. Femoral neck is 0.659 gm/cm2 with a T-score (standard deviations from the mean of young adults) of -1.7. When compared to the previous study of 04/14/2023 there has been no significant changes in bone density. BONE MINERAL DENSITY OF THE FOREARM Bone Mineral density (BMD) of the left proximal 1/3 of the radius measures 0.457 gm/cm2. This corresponds to a T-score (standard deviations from the mean of young adults) of -3.9. When compared to the previous study of 04/14/2023 there has been no significant changes in bone density. A forearm bone density study was performed in addition to the routine study due to department forearm protocol. SUMMARY: Bone mineral density shows evidence of osteoporosis and marked increase risk of fracture. There has been a significant increase in bone density since previous measurement. L4 excluded from bone mineral density analysis of the lumbar spine due to the presence of surgical hardware. The lumbar spine Trabecular Bone Score is 1.351 which suggests normal bone microarchitecture, compared to the general population. Final decisions regarding diagnostic or therapeutic recommendations should include BMD, TBS, additional clinical risk factors as well the clinical context of the patient. Please see attached TBS results for further details. ADDITIONAL COMMENTS: Postmenopausal Women and Men Over 50: Diagnostic criteria: Osteoporosis: BMD at or below -2.5 T-score; Osteopenia (low bone mass): BMD between -1.0 and -2.5 T-score. If the patient has a history of a fragility fracture, a fracture that occurred with trauma equivalent to a fall from a standing position or less, then the diagnosis is osteoporosis regardless of bone density. The history and data sections of the bone mineral density scan were prepared by Keily Santos)([facility])who is accredited by the International Society of Clinical Densitometry. The overall patient assessment and scan interpretation were performed by Wu Garcia M.D. who is certified by the International Society of Clinical Densitometry. [id number] Wu Garcia MD IMG DXA PROCEDURES Final Result * Pap and HPV, reflex to HPV Genotypes (03/15/2024 2:29 PM [facility] [employer] [facility]ANGING) CLINICAL INFORMATION: [facility] Comment:WWE LMP [facility] Comment:UNKNOWN Previous Pap [facility] Comment:NONE GIVEN Prev. Bx [facility] Comment:NONE GIVEN SOURCE: [facility] Comment:Cervix, Endocervix Pap, specimen adequacy [facility] Comment:SATISFACTORY FOR LIBIA LUATION HPV interp [facility] Comment: Cytology Results: Negative for intraepithelial lesion or malignancy. Atrophic pattern; predominantly parabasal cells COMMENTS [facility] Comment: This Pap test has been evaluated with computer assisted technology. 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 [address] Comment [facility] Comment: EXPLANATORY NOTE: The Pap is a screening test for cervical cancer. It is not a diagnostic test and is subject to false negative and false positive results. It is most reliable when a satisfactory sample, regularly obtained, is submitted with relevant clinical findings and history, and when the Pap result is evaluated along with historic and current clinical information. Human papillomavirus DNA, High Risk E6/E7 Not Detected NOT DETECTED [facility] Comment: Not Detected High Risk HPV types (16,18,31,33,35,39,45,51,52, 56,58,59,66,68) were not detected. Other HPV types which cause anogenital lesions may be present. The significance of the other types of HPV in malignant processes has not been established. Methodology: Real Time PCR Thin prep-Endocervica l 03/15/2024 2:29 PM [facility] [employer] [facility] 03/16/2024 3:51 AM [facility] [employer] HANGING Radha Cox MD LAB CYTOLOGY [facility] Final Result [facility] [address] [place] [address] [address] * Screening Mammogram Bilateral W Raulito (10/09/2023 2:05 PM CDT) Anatomical Region Laterality Modality Breast Bilateral Mammography Historical Provider MD OLSEN MAMMO PROCEDURES Francheska l Result * COLONOSCOPY (02/13/2023 9:59 AM [facility] HANGING) Anatomical Region Laterality Modality Other Narrative Procedure Note Dangelo Marks MD - 02/13/2023 9:59 AM CST [facility] Patient Name: Laura Bushrow Procedure Date: 02/13/2023 9:59 AM Date of : 1960 Admit Type: Outpatient Age: 62 Gender: Female Attending MD: Dangelo Marks M.D. Room: [facility] ENDOSCOPY ROOM 1 Note Status: Finalized Patient Profile: Refer to note in patient chart for documentation of history and physical. Procedure: Colonoscopy Indications: Last colonoscopy: April 2017 Referring MD: Patrick Valdez M.D. Providers: Dangelo Marks M.D. Impression: - Perianal skin tags found on perianal exam. - Scar in the rectum. - The examination was otherwise normal. - No specimens collected. Recommendation: - Discharge patient to home. - Resume previous diet. - Continue present medications. - Repeat colonoscopy in 5 years for surveillance. - Return to primary care physician as previously scheduled. Medicines: Propofol per Anesthesia Complications: No immediate complications. Estimated Blood Loss: Estimated blood loss: none. Procedure: Pre-Anesthesia Assessment: - This assessment was completed [Time ofAssessment] prior to the administration of sedation. The benefits, risks and alternatives of theprocedure and sedation were discussed and informed consentwas obtained. All questions were answered. Please referto the signed informed consent document in the medical record. The bowel preparation used was Miralax and bisacodyl tablets via single dose instruction. The scope was passed under direct vision. TheColonoscope [id number] was introduced through the anus and advanced to the the cecum, identified by appendiceal orifice and ileocecal valve. The colonoscopy was performed without difficulty. The patient tolerated the procedure well. The qualityof the bowel preparation was excellent. The ileocecal valve, appendiceal orifice, and rectum were photographed. Findings: Skin tags were found on perianal exam. A scar was found in the rectum. The scar tissue was healthy in appearance. The exam was otherwise without abnormality. Electronically signed by Dangelo Marks M.D. Dangelo Marks M.D. 02/13/2023 11:33:24 AM Number of Addenda: 0 Note Initiated On: 02/13/2023 9:59 AM Procedure Code(s): --- Professional --- 27318, Colonoscopy, flexible; diagnostic, including collection of specimen(s) by brushing or washing, when performed (separateprocedure) --- Technical --- 98388, Colonoscopy, flexible; diagnostic, including collection of specimen(s) by brushing or washing, when performed (separateprocedure) Diagnosis Code(s): --- Professional --- K64.4, Residual hemorrhoidal skin tags K62.89, Other specified diseases of anus and rectum --- Technical --- K64.4, Residual hemorrhoidal skin tags K62.89, Other specified diseases of anus and rectum CPT copyright 2020 [employer]. All rights reserved. The codes documented in this report are preliminary and upon benefits coordinator reviewmay be revised to meet current compliance requirements. Recognized by the [employer] for promoting quality in endoscopy us Dangelo Marks MD ENDOSCOPY PROCEDURES Final Re sult * Hepatitis C Antibody Reflex Hepatitis C RNA Quantitative PCR (02/19/2017 11:27 AM [facility] [employer] [facility]) Hep C Ab Negative Negative CERNER Blood specimen (specimen) 02/19/2017 11:27 AM [employer] [employer] [facility] 02/19/2017 4:15 PM [facility]ANGING Narrative [facility] - 02/19/2017 5:56 PM [facility] [employer]ANGING Patrick Valdez MD LAB MICROBIOLOGY - GENERAL [place] [id number] [address] Department [place] [address] from Last 3 Months or Most Recently Relevant to Health Maintenance [email or web address] [facility] [id number] [facility] [id number] [facility] [id number] [facility] [id number] Advance Directives For more information, please contact: [phone] * Full Code (Latest Code Status on File) Date Activated Date Inactivated Comments 02/13/2023 10:06 AM 02/13/2023 4:25 PM * Full Code Date Activated Date Inactivated Comments 02/13/2023 10:06 AM 02/13/2023 10:06 AM * Full Code Date Activated Date Inactivated Comments 11/11/2019 9:31 AM 11/11/2019 3:02 PM * Full Code Date Activated Date Inactivated Comments 11/11/2019 9:31 AM 11/11/2019 9:31 AM * Full Code Date Activated Date Inactivated Comments 08/05/2019 8:08 AM 08/05/2019 2:22 PM Care Teams Clinical Supervisor Relationship Specialty Start Date End Date Patrick Valdez MD [address] [address] PCP - General Internal Medicine 04/21/24 Nicolas Kaye NP [address] [place] [address] [address] [place] [address] Nurse Practitioner Nurse Practitioner 07/24/21 Ita Sanchez PA [address] [place] [address] [address] [place] [address] Physician Filtration Plant Mechanic Orthopedic Surgery 07/04/22
--- OUTSIDE RECORDS SUMMARY | 2024-08-31 13:58 | XMS_ITS ---
Author Organization Unknown Medications Medication Instructions Effective Dates (start - stop) Status amoxicillin 500 MG Oral Capsule 2023-02-25 4T00:00:00Z - Completed esomeprazole 40 MG Delayed Release Oral Capsule - Completed acyclovir 400 MG Oral Tablet [id number] 0:00:00Z - Completed duloxetine 60 MG Delayed Rel ease Oral Capsule - Completed duloxetine 60 MG Delayed Rel ease Oral Capsule - Completed eletriptan 40 MG Oral Tablet [id number] 0:00:00Z - Completed eletriptan 40 MG Oral Tablet [id number] 0:00:00Z - Completed eletriptan 40 MG Oral Tablet [id number] 0:00:00Z - Completed duloxetine 60 MG Delayed Rel ease Oral Capsule - Completed gabapentin 300 MG Oral Capsule 2022-09-27 T00:00:00Z - Completed eletriptan 40 MG Oral Tablet [id number] 0:00:00Z - Completed eletriptan 40 MG Oral Tablet [id number] 0:00:00Z - Completed gabapentin 300 MG Oral Capsule 2023-09-07 T00:00:00Z - Completed esomeprazole 40 MG Delayed Release Oral Capsule - Completed eletriptan 40 MG Oral Tablet [id number] 0:00:00Z - Completed celecoxib 200 MG Oral Capsule 2022-10-07 00:00:00Z - Completed eletriptan 40 MG Oral Tablet [id number] 0:00:00Z - Completed eletriptan 40 MG Oral Tablet [id number] 0:00:00Z - Completed acyclovir 400 MG Oral Tablet [id number] 0:00:00Z - Completed gabapentin 300 MG Oral Capsule 2023-09-05 T00:00:00Z - Completed 1.5 ML fremanezumab-vfrm 150 MG/ML Auto-Injector [Ajovy] - Completed lisinopril 40 MG Oral Tablet [id number] 0:00:00Z - Completed eletriptan 40 MG Oral Tablet [id number] 0:00:00Z - Completed celecoxib 200 MG Oral Capsule 2022-11-08 00:00:00Z - Completed eletriptan 40 MG Oral Tablet [id number] 0:00:00Z - Completed eletriptan 40 MG Oral Tablet [id number] 0:00:00Z - Completed lisinopril 40 MG Oral Tablet [id number] 0:00:00Z - Completed eletriptan 40 MG Oral Tablet [id number] 0:00:00Z - Completed gabapentin 300 MG Oral Capsule 2023-03-18 T00:00:00Z - Completed esomeprazole 40 MG Delayed Release Oral Capsule - Completed eletriptan 40 MG Oral Tablet [id number] 0:00:00Z - Completed gabapentin 300 MG Oral Capsule 2022-12-19 T00:00:00Z - Completed acyclovir 400 MG Oral Tablet [id number] 0:00:00Z - Completed eletriptan 40 MG Oral Tablet [id number] 0:00:00Z - Completed 1 ML galcanezumab-gnlm 120 M G/ML Auto-Injector [Emgality] - Completed duloxetine 60 MG Delayed Rel ease Oral Capsule - Completed gabapentin 300 MG Oral Capsule 2023-03-12 T00:00:00Z - Completed lisinopril 40 MG Oral Tablet [id number] 0:00:00Z - Completed esomeprazole 40 MG Delayed Release Oral Capsule - Completed eletriptan 40 MG Oral Tablet [id number] 0:00:00Z - Completed 1 ML galcanezumab-gnlm 120 M G/ML Auto-Injector [Emgality] - Completed celecoxib 200 MG Oral Capsule 2022-12-28 00:00:00Z - Completed eletriptan 40 MG Oral Tablet [id number] 0:00:00Z - Completed celecoxib 200 MG Oral Capsule 2022-12-05 00:00:00Z - Completed celecoxib 200 MG Oral Capsule 2022-12-29 00:00:00Z - Completed 1.5 ML fremanezumab-vfrm 150 MG/ML Auto-Injector [Ajovy] - Completed eletriptan 40 MG Oral Tablet [id number] 0:00:00Z - Completed lisinopril 40 MG Oral Tablet [id number] 0:00:00Z - Completed gabapentin 300 MG Oral Capsule 2023-06-13 T00:00:00Z - Completed eletriptan 40 MG Oral Tablet [id number] 0:00:00Z - Completed eletriptan 40 MG Oral Tablet [id number] 0:00:00Z - Completed gabapentin 300 MG Oral Capsule 2022-09-22 T00:00:00Z - Completed Patient Care team information Name Category Status Period Participants - - Proposed period not known -
--- OUTSIDE RECORDS SUMMARY | 2024-08-31 13:58 | XMS_ITS | Encounter Summary ---
Author Organization [facility] Address [address] [place] [address] Phone Care Team Providers Care Clocksmith Name Role Phone Nicolas Kaye WIND INSTRUMENT REPAIRER Unavailable [phone] Ita Sanchez Unavailable [phone] Darren Cardenas MD Primary Care Provider + [phone] Patrick Valdez MD Primary Care Provider [phone] Encounter Details Date Type Department Care Team (Late st Contact Info) Description 02/19/2017 Orders Only [facility] ProviderSanti MD [address] [place] [id number] Social History Tobacco Use Types Packs/Day Years Used Date Smoking Tobacco: Never Alcohol Use Standard Drinks/Week Comments Yes 0 (1 standard drink = 0.6 oz pur e alcohol) Comments Unknown Sex and Gender Information Value Date Recorded Sex Assigned at Not on file Legal Sex Female 11:55 PM MULESER Gender Identity Female 04/19/2022 11:37 AM MULESER Sexual Orientation Straight 09/06/2018 9: 27 PM CDT documented as of this encounter Plan of Treatment Not on file documented as of this encounter Procedures Procedure Name Priority Date/Time Associated Diagnosis Comments DISCHARGE LABORATORY CUMULATIVE REPORT 02/19/2017 12:00 AM MULESER documented in this encounter Results * DISCHARGE LABORATORY CUMULATIVE REPORT (02/19/2017 12:00 AM MULESER) Narrative 02/19/2017 12:00 AM MULESER Ordered by an unspecified provider. us Historical Provider LAB BLOOD ORDERABLES Francheska l Result documented in this encounter Visit Diagnoses Not on filedocumented in this encounter Care Teams Clocksmith Relationship Specialty Start Date End Date Darren Cardenas MD [address] [place] [address] [address] [place] [address] PCP - General Internal Medicine 05/07/23 04/20/24 Patrick Valdez MD [id number] [address] PCP - General Internal Medicine 04/21/24 Nicolas Kaye NP [address] [place] [address] [address] [place] [address] Nurse Practitioner Nurse Practitioner 07/24/21 Ita Sanchez PA [address] [place] [address] [address] [place] [address] Physician Lens Assorter Orthopedic Surgery 07/04/22 documented as of this encounter
--- OUTSIDE RECORDS SUMMARY | 2024-08-31 13:58 | XMS_ITS | Referral Summary ---
Author Organization [facility] A Address [address] [place] [address] Care Team Providers Care On Car Supervisor Name Role Phone Nicolas Kaye Julius ELEMENTARY SCHOOL DIRECTOR Unavailable [phone] Ita Sanchez Unavailable [phone] Patrick Valdez MD Primary Care Provider [phone] Encounters Date Type Department Care Team Description 08/11/2024 6:03 PM CDT - 08/11/2024 7:42 PM CDT Emergency [facility] Emergency Department [address] [place] [address] Thai Anderson MD Migraine without status migrainosus, not intractable, unspecified migraine type (Primary Dx) Discharge Disposition: Discharge to home or self care 07/21/2024 Orders Only [facility] General Neurology [address] 6th [address] [place] [address] Thomas Vazquez RN Intractable chronic migraine without aura and without status migrainosus (Primary Dx) 07/21/2024 1:30 PM CDT Procedure visit [facility] General Neurology [address] [place] [address] Summer Young MD PhD Intractable chronic migraine without aura and without status migrainosus (Primary Dx) 07/20/2024 Telephone [facility] General Neurology [address] [place] [id number] Summer Young MD PhD Emgality PA 07/16/2024 Orders Only [facility] General Neurology [address] [place] [address] Ashley Christina Intractable chronic migraine without aura and without status migrainosus (Primary Dx) 06/08/2024 Telephone [facility] [address] [place] [address] Radha Cox MD from Last 3 Months Allergies Active Allergy Reactions Criticality Noted Date [...] forearm- -4, spine = -0.4 follows at [place]. Assessment & Plan (03/15/2024 1:38 PM MAT REPAIRER): Pap done. RTO 12m. I will send the results to the portal. If she has not heard in a week, to call the office. Assessment & Plan (09/08/2023 4:07 PM CDT): Due in January. Assessment & Plan (01/27/2023 1:43 PM MAT REPAIRER): Pap done. RTO 12m. I will send the results to the portal. If she has not heard in a week, to call the office. Family history of cancer 01/27/2023 Overview (08/02/2023): Multiple see list. 02/26/23- my risk is negative. My risk score = 32.1 and TC model=21.6% 04/12/23- she did not see 08/02/23- she was seen at [facility], but did not enroll in their program. Increased surveillance was recommended. Assessment & Plan (03/15/2024 1:52 PM MAT REPAIRER): Normal breast exam Will repeat in 6m. Assessment & Plan (09/08/2023 4:06 PM CDT): She is scheduled for September for tan Note reviewed from [facility] They recommend - yearly tna and q 6m breast exam. Breast are good. Assessment & Plan (03/10/2023 4:31 PM MAT REPAIRER): Will arrange for her to go to [facility] Will plan for usg to screen the ovaries q 1-2 years She had press catcher She had colonscopy 02/15. Will plan to repeat 2027 Assessment & Plan (01/27/2023 1:51 PM MAT REPAIRER): She qualifies for genetic testing. Will arrange. [...] complaints. Assessment & Plan (04/18/2022 2:34 PM MAT REPAIRER): Recommended Debrox for 4- 5 days and calling back for ear wash at that point. S/P total knee arthroplasty, right 11/11/2021 Hemorrhoids 09/07/2021 Overview (09/07/2021): Added automatically from request for surgery [id number] Osteoarthritis of right knee 03/24/2020 Assessment & Plan (03/24/2020 5:42 PM MAT REPAIRER): Repeat Orthopedic referral when ready. Low vitamin B12 level 07/23/2019 Assessment & Plan (05/09/2023 12:34 PM CDT): Continue B12 supplementation check levels yearly. Assessment & Plan (05/08/2023 6:10 PM CDT): B12 results in therapeutic range patient takes B12 every other day by mouth Assessment & Plan (04/18/2022 2:32 PM MAT REPAIRER): Continue supplementation check level in 1 year. Assessment & Plan (05/25/2021 12:06 AM CDT): Continue B12 supplementation. Assessment & Plan (03/24/2020 5:42 PM MAT REPAIRER): Continue supplementation and check level in 1 year. Assessment & Plan (07/23/2019 2:53 PM CDT): Continue supplementation check level before next visit. Iron deficiency 07/23/2019 Overview (03/24/2020): EGD 07/2019 with gastritis, healed on 10/2019 egd; colonoscopy unremarkable 2017. Iron levels, cbc normalized 02/2020. Assessment & Plan (04/18/2022 2:32 PM MAT REPAIRER): Continue supplementation check level in 1 year. Assessment & Plan (05/25/2021 12:06 AM CDT): Continue iron supplementation. Assessment & Plan (03/24/2020 5:44 PM MAT REPAIRER): Resolved with supplementation. Assessment & Plan (07/23/2019 2:54 PM CDT): Continue supplementation. EGD before next visit. Colonoscopy last done 2017. Gastroesophageal reflux disease with esophagitis 03/16/2019 Overview (03/16/2019): Added automatically from request for surgery [id number] Assessment & Plan (05/08/2023 6:11 PM CDT): [...] therapy. Assessment & Plan (04/18/2022 2:33 PM MAT REPAIRER): Blood pressure well controlled on lisinopril. Assessment & Plan (05/25/2021 12:06 AM CDT): Well controlled on the current regimen. Avoidance of salt, proper body weight, and routine exercise recommended. Assessment & Plan (03/24/2020 5:43 PM MAT REPAIRER): Well controlled on the current regimen. Avoidance of salt, proper body weight, and routine exercise recommended. Assessment & Plan (07/23/2019 2:52 PM CDT): Well controlled on the current regimen. Avoidance of salt, proper body weight, and routine exercise recommended. Assessment & Plan (03/09/2019 3:38 PM MAT REPAIRER): Start lisinopril 20 mg daily and check [...] normalized. Assessment & Plan (03/24/2020 5:44 PM MAT REPAIRER): Continue B12 and iron supplementation. Hemoglobin improved and now normal. Check levels again before next visit. Assessment & Plan (07/23/2019 2:52 PM CDT): Combination of iron and B12 deficiency. Continue supplementation. Check B12 and iron levels before next visit. EGD pending for iron deficiency. Assessment & Plan (03/09/2019 3:39 PM MAT REPAIRER): Laboratory workup before next visit. Spondylolisthesis of lumbar region 12/30/2018 Overview (12/30/2018): Added automatically from request for surgery [id number] Spondylolisthesis of lumbosacral region 12/10/19 19 Chronic migraine without aur a without status migrainosus, not intractable 10/14/2017 Assessment & Plan (03/09/2019 3:40 PM MAT REPAIRER): Continue current medication regimen and follow up with her neurologist as they direct. Assessment & Plan (03/08/2018 2:09 PM MAT REPAIRER): Continue her multiple medications and follow up with her neurologist as they direct. Healthcare maintenance 03/05/2017 Assessment & Plan (05/09/2023 12:33 PM CDT): Flu shot each November. Tetanus booster every 10 years. COVID booster recommended. Shingrix completed. Colonoscopy due January 2028. Mammogram yearly. Follow-up the surface miner for breast exam and pelvic exam as they direct. Will see her back in 1 year for physical fasting lab sooner if needed. Assessment & Plan (04/18/2022 2:34 PM MAT REPAIRER): Flu shot each November. Tetanus booster today. COVID booster recommended. Shingrix recommended. Colonoscopy due April 2022. Mammogram yearly. Follow-up the surface miner for breast exam and pelvic exam as they direct. Will see her back in 1 year for physical fasting lab sooner if needed. Assessment & Plan (05/25/2021 12:07 AM CDT): Flu shot each November. Tetanus booster every 10 years. COVID-19 vaccine recommended. Shingrix recommended. Colonoscopy due April 2022. Mammogram yearly. Follow-up the surface miner for breast exam and pelvic exam as they direct. Will see her back in 1 year for physical fasting lab sooner if needed. Assessment & Plan (03/24/2020 5:44 PM MAT REPAIRER): Flu shot each November. Tetanus booster every 10 years. COVID -19 vaccine when available. Shingrix recommended. Colonoscopy April 2022. Mammogram April 2020. Follow-up with her surface miner for breast exam and pelvic exam as they direct. Will see her back in 1 year for physical and fasting lab sooner if needed. Assessment & Plan (03/09/2019 3:39 PM MAT REPAIRER): Flu shot each November. Tetanus booster every 10 years. Shingrix recommended. Colonoscopy due April 2022. Mammogram yearly. Will see her back in 2 months for a blood pressure check sooner if needed. Assessment & Plan (03/08/2018 2:09 PM MAT REPAIRER): Flu shot each November. Tetanus booster every 10 years. Shingrix recommended colonoscopy due April 2022. Yearly mammogram and follow up with her surface miner for breast exam and pelvic exam as they direct. We will see her back in 1 year for physical and fasting lab sooner if needed. Assessment & Plan (03/05/2017 4:02 PM MAT REPAIRER): Flu shot each November. Tetanus booster every 10 years. Colonoscopy due later this month. Mammogram yearly. Follow-up with the surface miner for breast exam and pelvic exam as they direct. We will see her back in 1 year sooner if needed. Chronic headache 03/04/2017 Overview (03/04/2017): Tension/migraine, [facility]. Improved with botox. Failed nortriptyline. Assessment & Plan (11/13/2023 2:29 PM CDT): Headaches stable patient is under care of Neurology at [facility] Dr. Lundberg. Assessment & Plan (05/08/2023 6:07 PM CDT): Patient advised me therapy for headaches is working very effectively she is under care of neurologist at [facility] Dr. Summer Young. Follow-up visit about every 12 weeks to manage her ongoing headache concerns and problems Assessment & Plan (03/24/2020 5:43 PM MAT REPAIRER): Follow-up with her neurologist as they direct. Assessment & Plan (03/05/2017 4:00 PM MAT REPAIRER): Follow-up with her neurologist as they direct. Chronic low back pain 03/04/2017 Assessment & Plan (03/09/2019 3:40 PM MAT REPAIRER): Follow-up with her neurosurgeon as they direct. Herpes labialis 03/04/2017 Osteoporosis 12/23/2016 Assessment & Plan (04/27/2024 6:54 PM MAT REPAIRER): Continue calcium, vitamin-D, weight-bearing exercise and follow up with her bone density specialist as they direct. Assessment & Plan (05/09/2023 12:33 PM CDT): Continue calcium, vitamin-D, weight-bearing exercise and follow up with her bone density specialist as they direct. Assessment & Plan (05/08/2023 6:08 PM CDT): Patient under care of Dr. Garcia [place] [facility]. She is maintained on vitamin-D calcium and Prolia Assessment & Plan (04/18/2022 2:32 PM MAT REPAIRER): Calcium, vitamin-D, weight-bearing exercise, Reclast/bone density scan per her bone density specialist. Assessment & Plan (05/25/2021 12:06 AM CDT): Calcium, vitamin-D, weight-bearing exercise and follow-up with her bone density specialist as they direct. Assessment & Plan (03/24/2020 5:42 PM MAT REPAIRER): Continue calcium, vitamin-D, weight-bearing exercise and follow-up with bone density specialist as they direct. Assessment & Plan (03/09/2019 3:38 PM MAT REPAIRER): Continue calcium, vitamin-D, weight-bearing exercise and follow up with her bone density specialist for Reclast and bone density scans as they direct. Assessment & Plan (03/08/2018 2:08 PM MAT REPAIRER): Calcium, vitamin-D, weight-bearing exercise and follow up with her specialist for her 2nd Reclast dose and repeat bone density scan as they direct Assessment & Plan (03/05/2017 4:00 PM MAT REPAIRER): Continue calcium, vitamin-D, weight-bearing exercise, Reclast and follow up with her specialist as they direct. Disturbance in sleep behavior 09/04/2015 Impaired fasting glucose 07/10/2013 Overview (05/29/2016): IMPAIRED FASTING GLUCOSE Assessment & Plan (04/27/2024 6:53 PM MAT REPAIRER): Patient should reduce sugar and carbs, increase exercise, maintain proper body weight, and will check an A1c once or twice yearly. Assessment & Plan (05/09/2023 12:32 PM CDT): Patient should reduce sugar and carbs, increase exercise, maintain proper body weight, and will check an A1c once or twice yearly. Assessment & Plan (04/18/2022 2:32 PM MAT REPAIRER): Patient should reduce sugar and carbs, increase exercise, maintain proper body weight, and will check an A1c once or twice yearly. Assessment & Plan (05/25/2021 12:05 AM CDT): Patient should reduce sugar and carbs, increase exercise, maintain proper body weight, and will check an A1c once or twice yearly. Assessment & Plan (03/24/2020 5:43 PM MAT REPAIRER): Patient should reduce sugar and carbs, increase exercise, maintain proper body weight, and will check an A1c once or twice yearly. Assessment & Plan (03/09/2019 3:38 PM MAT REPAIRER): Patient should reduce sugar and carbs, increase exercise, maintain proper body weight, and will check an A1c once or twice yearly. Assessment & Plan (03/08/2018 2:08 PM MAT REPAIRER): Patient should reduce sugar and carbs, increase exercise, maintain proper body weight, and will check an A1c once or twice yearly. Assessment & Plan (03/05/2017 3:59 PM MAT REPAIRER): Patient should reduce sugar and carbs, increase exercise, maintain proper body weight, and will check an A1c once or twice yearly. Hyperlipidemia 07/10/2013 Overview (05/29/2016): HYPERLIPIDEMIA NEC/NOS Assessment & Plan (04/27/2024 6:53 PM MAT REPAIRER): Low risk for ASCVD and therefore recommend diet exercise and will check again 1 year. Assessment & Plan (05/09/2023 12:32 PM CDT): Low risk for ASCVD and therefore recommend diet exercise and will check again 1 year. Assessment & Plan (05/08/2023 6:10 PM CDT): Profile were reviewed patient's ASCVD score is 3.7 which is very low Assessment & Plan (04/18/2022 2:33 PM MAT REPAIRER): Low risk for ASCVD and therefore recommend diet exercise and will check again 1 year. Assessment & Plan (05/25/2021 12:05 AM CDT): Remains low risk for ASCVD and therefore recommend diet exercise. Assessment & Plan (03/24/2020 5:43 PM MAT REPAIRER): Low risk for ASCVD and therefore recommend diet and exercise. Assessment & Plan (03/09/2019 3:39 PM MAT REPAIRER): Low risk for ASCVD and therefore recommend diet exercise. Assessment & Plan (03/08/2018 2:08 PM MAT REPAIRER): Low risk for ASCVD and therefore recommend diet exercise. Assessment & Plan (03/05/2017 4:00 PM MAT REPAIRER): Diet and exercise recommended. Arthralgia of hip [...] 11/13/2023 Assessment & Plan (03/06/2021 2:18 PM MAT REPAIRER): Hi fiber diet and miralax Gastritis 10/14/2019 11/13/2023 Overview (10/14/2019): Added automatically from request for surgery [id number] Intractable chronic migraine without aura and without status migrainosus 09/30/2017 09/08/2018 Osteopenia 10/23/2015 03/06/2018 Ankle pain 03/08/2015 05/08/2023 Anxiety 12/08/2013 05/08/2023 Gastroesophageal reflux disease 07/10/2013 07/18/2021 Overview (05/31/2016): ESOPHAGEAL REFLUX Assessment & Plan (07/23/2019 2:53 PM CDT): Continue generic Nexium. EGD pending. Assessment & Plan (03/09/2019 3:39 PM MAT REPAIRER): Changed to generic Nexium 40 mg daily. Discussed lifestyle modifications. Order EGD. Assessment & Plan (03/08/2018 2:08 PM MAT REPAIRER): Continue current PPI and the patient is aware of the long-term risks posed by chronic PPI usage. Magnesium level will be checked periodically. Calcium supplementation recommended. Assessment & Plan (03/05/2017 4:04 PM MAT REPAIRER): If no improvement on her omeprazole in 2 weeks, increased to 40 mg daily. Lifestyle modification discussed. Long-term risks of PPI discussed. Check magnesium level occasionally. Immunizations Immunization Administration Dates Next Due Influenza, Quadrivalent, Spl it, Intramuscular 11/08/2015 Influenza, Quadrivalent, Spl it, Preservative Free, Intramuscular 12/10/2022,12/14/2021,12/26/2020,12/20,12/23/2018,12/25/2017,12/01/2014 Influenza, Split 11/27/2010 Influenza, Trivalent, IM (MDV) 12/08/2013,2012,12/19/2011 Influenza, Trivalent, Preser vative Free, Intramuscular 11/13/2023 Influenza, Unspecified 12/02/2016 Hemp Victory Exchange (J&J) SARS-CoV-2 Vaccination 05/02/2020 Pfizer SARS-CoV-2 Monovalent Vaccination (12+ Yrs) PURPLE 01/09/2021 Td, adsorbed 04/18/2022 Tdap 12/18/2010 ZOSTER Recombinant 06/26/2021,04/17/2021 Social History Tobacco Use Types Packs/Day Years [...] on file Legal Sex Female 11:55 PM MAT REPAIRER Gender Identity Female 04/19/2022 11:37 AM MAT REPAIRER Sexual Orientation Straight 09/06/2018 9: 27 PM CDT Last Filed Vital Signs Vital Sign Reading [...] 08/11/2024 12:49 PM CDT Plan of Treatment Not on file Medical Devices Implanted Type Area Vocal Artist Device Identifier Shelf Expiration Date Model / Serial / Lot Medtronic Inc [id number] Screw 40mm 6.5mm Bone Cd Horizon Solera Voyager Spine Multiaxial Nonsterile 5.5mm Naveed - [id number] Implanted:Qty: 2 on 03/25/2019 by Jose Garibay MD at [facility] Screw N/A: Spine Lumbar Medtronic Inc [id number] / / Medtronic Inc [id number] Screw 45mm 6.5mm Bone Cd Horizon Solera Voyager Spine Multiaxial Nonsterile 5.5mm Naveed - [id number] Implanted:Qty: 2 on 03/25/2019 by Jose Garibay MD at [facility] Screw N/A: Spine Lumbar Medtronic Inc [id number] / / Medtronic Inc [id number] Screw Set Cd Horizon Soleral Voyager Od5.5/6mm Nonsterile Latex Free - [id number] Implanted:Qty: 4 on 03/25/2019 by Jose Garibay MD at [facility] Screw N/A: Spine Lumbar Medtronic Inc [id number] / / Screws Left: Foot Tissue Bone Void Filler Acupac Plus 10cc - [id number] - [id number] Implanted:Qty: 1 on 03/23/2019 by Jose Garibay MD at [facility] Surgical Inc 10/21/2023 [id number] / [id number] / Giant Swarm Spine Tech [id number] Cage Spinal Base Titanium 15 D L42 Mm X W30 Mm X H10 Mm Nonsterile Latex Free - [id number] - [id number] Implanted:Qty: 1 on 03/23/2019 by Jose Garibay MD at [facility] Nuvasive Inc [id number] / [id number] / NuVoluntis Spine Tech [id number] Base Od5 Mm L20 Mm Variable Angle [place] Spinal Titanium Nonsterile - [id number] - [id number] Implanted:Qty: 1 on 03/23/2019 by Jose Garibay MD at [facility] Nuvasive Inc [id number] / [id number] / Medtronic Inc [id number] Cd Horizon Solera 5.5mm 35mm Cap Naveed Spinal Ccm Plus Nonsterile - [id number] Implanted:Qty: 2 on 03/25/2019 by Jose Garibay MD at [facility] N/A: Spine Lumbar Medtronic Inc [id number] / / Depuy Orthopaedics Inc Attune 5mm Cruciate Retaining Fix Bearing Knee 4 Insert Tibial [id number] - [id number] Implanted:Qty: 1 on 07/24/2021 by Nato Lebron MD at [facility] Right: Knee Depuy Orthopaedics Inc 12/24/2024 [id number] / / [id number] Depuy Orthopaedics Inc Attune Cruciate Retain Cementless Knee Right 4 Component Femoral [id number] - [id number] Implanted:Qty: 1 on 07/24/2021 by Nato Lebron MD at [facility] Right: Knee Depuy Orthopaedics Inc 06/23/2030 [id number] / / [id number] Attune Knee System Tibial Base Affixium Fixed Bearing Implanted:Qty: 1 on 07/24/2021 by Nato Lebron MD at [facility] Right: Knee Attune Medical [id number] 04/24/2031 [id number] / N/A / [id number] Description:REF [id number] [facility] ITEM# [id number] HAS NO CHARGE CODE ASSIGNED, REQ ENTERED INTO [facility] COST EA. 1272.00 DEVICE IDENT-[id number] Charge code assigned 07/25/21 [phone] Arthrex Inc Suturebridge [place] Drill Guide Punch Tap Set Implant Achilles [id number] - [id number] Implanted:Qty: 1 on 07/04/2022 by Nato Lebron MD at [facility] Right: Shoulder Arthrex Inc 12/24/2025 [id number] / / [id number] Arthrex Inc System Biceps [place] Slotted Drill Guide 1.9mm Drill Fibertak Ar-3670 - [id number] Implanted:Qty: 1 on 07/04/2022 by Nato Lebron MD at [facility] Right: Shoulder Arthrex Inc 05/25/2027 [id number]-3670 / / [id number] Description:Sub Pec Procedures Procedure Name Priority Date/Time Associated Diagnosis Comments CT HEAD WO CONTRAST ED 08/11/2024 1:58 PM CDT DEXA TBS AXIAL SKELETON BONE DENSITY 1 OR MORE SITES Schedule Routine, Read Routine (OP Routine) 04/20/2024 2:42 PM MAT REPAIRER Age-related osteoporosis without current pathological fracture PAP AND HPV, REFLEX TO HPV GENOTYPES Routine 03/15/2024 2:29 PM MAT REPAIRER Well woman exam SCREENING MAMMOGRAM BILATERAL W RAULITO Schedule Routine, Read Routine (OP Routine) 10/09/2023 2:05 PM CDT COLONOSCOPY 02/13/2023 9:59 AM MAT REPAIRER HEPATITIS C AB REFLEX RNA QUANT PCR Routine 02/19/2017 11:27 AM MAT REPAIRER from Last 3 Months or Most Recently [...] abnormality. Electronically signed by: Royal Bills M.D. Felicity Mackenzie Alexi ELEMENTARY SCHOOL DIRECTOR IMG CT PROCEDURES Fi nal Result * Dexa TBS Axial Skeleton Bone Density 1 or more sites (04/20/2024 2:42 PM MAT REPAIRER) Anatomical Region Laterality Modality Wrist, Body N/A Radiographic Liz ging Narrative 04/21/2024 1:08 PM MAT REPAIRER Patient Name: Laura Lyons Date of : 1960 Date of scan: 04/20/2024 Bone mineral density was performed on a Tesseract Interactive Discovery Densitometer. Based on machine cross-calibration and [...] mineral density scan were prepared by Keily Santos)([facility])who is accredited by the International Society of Clinical Densitometry. The overall patient assessment and scan interpretation were performed by Wu Garcia M.D. who is certified by the International Society of Clinical Densitometry. [id number] us Wu Garcia MD IM DXA PROCEDURES Final Result * Pap and HPV, reflex to HPV Genotypes (03/15/2024 2:29 PM MAT REPAIRER) CLINICAL INFORMATION: [facility] Comment:WWE LMP [facility] Comment:UNKNOWN Previous Pap [facility] Comment:NONE GIVEN Prev. Bx [facility] Comment:NONE GIVEN SOURCE: [facility] Comment:Cervix, Endocervix Pap, specimen adequacy [facility] Comment:SATISFACTORY FOR LIBIA LUATION HPV interp [facility] Comment: Cytology Results: Negative for intraepithelial lesion or malignancy. Atrophic pattern; predominantly parabasal cells COMMENTS [facility] Comment: This Pap test has been evaluated with computer assisted technology. Tool Turret Lathe Set Up Operator [facility] Comment: SOTERO, CT(ASCP) CT screening location: [place] [address] [id number] [facility] Comment: EXPLANATORY NOTE: The Pap is [...] High Risk E6/E7 Not Detected NOT DETECTED [facility] Comment: Not Detected High Risk HPV types (16,18,31,33,35,39,45,51,52, 56,58,59,66,68) were not detected. Other HPV types which cause anogenital lesions may be present. The significance of the other types of HPV in malignant processes has not been established. Methodology: Real Time PCR Thin prep-Endocervica l 03/15/2024 2:29 PM MAT REPAIRER 03/16/2024 3:51 AM MAT REPAIRER Radha Cox MD LAB CYTOLOGY ORDERA BLES Final Result [place] [address] [place] [address] [place] [address] [place] [address] * Screening Mammogram Bilateral W Raulito (10/09/2023 2:05 PM CDT) Anatomical Region Laterality Modality Breast Bilateral Mammography Historical Provider MD OLSEN MAMMO PROCEDURES Francheska l Result * COLONOSCOPY (02/13/2023 9:59 AM MAT REPAIRER) Anatomical Region Laterality Modality Other Narrative Procedure Note Dangelo Marks MD - 02/13/2023 9:59 AM CST [facility] Patient Name: Laura Lyons Procedure Date: 02/13/2023 9:59 AM Date of : 1960 Admit Type: Outpatient Age: 62 Gender: Female Attending MD: Dangelo Marks M.D. Room: [facility] END[facility]COPY ROOM 1 Note Status: Finalized Patient [...] scope was passed under direct vision. TheColonoscope [id number] was introduced through the anus and advanced [...] 9:59 AM Procedure Code(s): --- Professional --- 88876, Colonoscopy, flexible; diagnostic, including collection of specimen(s) by brushing or washing, when performed (separateprocedure) --- Technical --- 94373, Colonoscopy, flexible; diagnostic, including collection of specimen(s) by brushing or washing, when performed (separateprocedure) Diagnosis Code(s): --- Professional --- K64.4, Residual hemorrhoidal skin tags K62.89, Other specified diseases of anus and rectum --- Technical --- K64.4, Residual hemorrhoidal skin tags K62.89, Other specified diseases of anus and rectum CPT copyright 202 [employer]. All rights reserved. The codes documented in this report are preliminary and upon it generalist reviewmay be revised to meet current compliance requirements. Recognized by the [employer] for promoting quality in endoscopy us Dangelo Marks MD ENDOSCOPY PROCEDURES Final Re sult * Hepatitis C Antibody Reflex Hepatitis C RNA Quantitative PCR (02/19/2017 11:27 AM MAT REPAIRER) Hep C Ab Negative Negative THEE Blood specimen (specimen) 02/19/2017 11:27 AM MAT REPAIRER 02/19/2017 4:15 PM MAT REPAIRER Narrative THEE GAUTHIER - 02/19/2017 5:56 PM MAT REPAIRER us Patrick Valdez MD LAB MICROBIOLOGY - GENERAL O RDERABLES Final Result THEE [id number] [address] Department [place] [address] from Last 3 Months or Most Recently Relevant to Health Maintenance Insurance [employer] [facility] [id number] [facility] [id number] [facility] [id number] [facility] [id number] Advance Directives For more information, please contact: [phone] * Full Code (Latest Code Status on [...] 8:08 AM 08/05/2019 2:22 PM Care Teams On Car Supervisor Relationship Specialty Start Date End Date Patrick Valdez MD [address] [facility] [address] [address] PCP - General Internal Medicine 04/21/24 Nicolas Kaye NP [address] [place] [address] [address] [place] [address] Nurse Practitioner Nurse Practitioner 07/24/21 Ita Sanchez PA [address] [place] [address] [address] [place] [address] Physician [facility] 07/04/22
== END 2024-08-31 13:53 | disposition home or self-care (01) ==
LOC: ANHBWCAUD 13:53
PROVIDERS: PCP Internal Medicine; Visit Provider Otolaryngology
DX: H90.3 Sensorineural hearing loss, bilateral (principal); H92.03 Otalgia, bilateral; H93.13 Tinnitus, bilateral; H74.8X2 Other specified disorders of left middle ear and mastoid; H73.893 Other specified disorders of tympanic membrane, bilateral; G43.909 Migraine, unspecified, not intractable, without status migrainosus; Z82.2 Family history of deafness and hearing loss
CPT/HCPCS: 92557; 92567

== ENCOUNTER 2024-12-14 14:52 | Outpatient (CLI) | payer OTHER, SELFPAY ==
--- NOTE | ~2024-12-14 | MM_ITS ---
EXAMINATION: MM screening tan BI w jean pierre HISTORY: Screening TECHNIQUE: Craniocaudal and mediolateral oblique 3-D tomosynthesis images were obtained and synthetic 2-D images were generated. CAD analysis was submitted and interpreted. COMPARISON: Comparison to multiple prior studies sequentially, with oldest reviewed study dated , 05/11/2019 BREAST PARENCHYMAL COMPOSITION: The breasts are almost entirely fatty. FINDINGS: There is no evidence of suspicious mass, calcification, or architectural distortion to suggest malignancy in either breast. IMPRESSION: 1. No mammographic evidence of malignancy. 2. Recommend routine screening mammography in one year. BI-RADS Category 1: Negative Reviewed, dictated and finalized at location B.
== END 2024-12-14 14:53 | disposition home or self-care (01) ==
LOC: MICIMG 14:53
PROVIDERS: PCP Internal Medicine; Visit Provider Obstetrics & Gynecology
DX: Z12.31 Encounter for screening mammogram for malignant neoplasm of breast (principal)
CPT/HCPCS: 77063; 77067